=== PATIENT | male | born 1990 | race Two or more races ===

== ENCOUNTER 2019-04-20 14:35 | Emergency (ER) | payer SELFPAY ==
[~2019-04-20] VITALS: Ht 175.3 cm; Wt 71.7 kg
[2019-04-20 15:46] LABS: Basophils # (auto) 0 uL; Basophils % (auto) 1.2 % (0.0-2.0); Eosinophils # (auto) 0.1 uL; Eosinophils % (auto) 1.5 % (0.0-7.0); Hematocrit 43.7 % (41.0-53.0); Lymphocytes # (auto) 1.3 uL; Lymphocytes % (auto) 37.8 % (10.0-50.0); Mean Corpuscular Hemoglobin 31.4 pg (28.0-32.0); Mean Corpuscular Hgb Conc. 34.4 g/dL (32.0-36.0); Mean Corpuscular Volume 91.4 fL (80.0-100.0); Monocytes # (auto) 0.4 uL; Monocytes % (auto) 10.6 % (0.0-12.0); Neutrophils # (auto) 1.7 uL; Neutrophils % (auto) 48.9 % (37.0-80.0); Nucleated Red Blood Cells % 0.2 %; Platelet Count (auto) 176 10^3/uL (140-450); Red Blood Cells 4.79 10^6/uL (4.5-5.90); White Blood Cell 3.5 10^3/uL (4.4-10.8)
[2019-04-20 16:06] LABS: Calcium 8.8 mg/dL (8.5-10.1); Potassium 3.9 mmol/L (3.5-5.1)
[2019-04-20 16:09] LABS: BUN/Creatinine Ratio 14.4; Bilirubin, Total 0.6 mg/dL (0.2-1.0); Total Protein 7.8 g/dL (6.4-8.2)
[2019-04-20 16:44] VITALS: BP 111/52
== END 2019-04-20 16:47 | disposition home or self-care (01) ==
LOC: ER 14:35
DX: E86.0 Dehydration (principal); R42 Dizziness and giddiness
CPT/HCPCS: 36415; 70450; 80053; 85025